=== PATIENT | female | born 1950 | race Caucasian/White ===

== ENCOUNTER → 2017-03-04 | Outpatient (CLI) | payer OTHER ==
--- NOTE | 2017-03-04 13:20 | BD ---
EXAMINATION TYPE: MG DEXA axial skeleton. DATE OF EXAM: 03/04/2017 COMPARISON: NONE CLINICAL HISTORY: Height: 63 inches Weight: 133 FRAX RISK QUESTIONS: Alcohol (3 or more units per day): no Family History (Parent hip fracture): no Glucocorticoids (More than 3mos): no (Ex: prednisone, prednisolone, methylprednisolone, dexamethasone, and hydrocortisone). History of Fracture in Adulthood: finger Secondary Osteoporosis: 1. Type 1 Diabetes: no, type II 2. Hyperthyroidism: no 3. Menopause before 45: no 4. Malnutrition: no 5. Chronic liver disease: no Rheumatoid Arthritis: no Current Tobacco Use: no RISK FACTORS HISTORY OF: Family History of Osteoporosis: no Active: no Diet low in dairy products/other sources of calcium: no Postmenopausal woman: no Take estrogen and/or progesterone medications: no Lost more than 2 inches in height since high school: no Frequent falls: no Poor Health: somewhat Hyperparathyroidism: no Adrenal Insufficiency: no MEDICATIONS: Prednisone or other steroids: no Thyroid Medications: no Osteoporosis Medications: no Additional Medications: blood pressure med, diabetes meds , multi vitamin Additional History: type II diabetic, lab band surgery-with port EXAM MEASUREMENTS: Bone mineral densitometry was performed using the [employer] System. Bone mineral density as measured about the Lumbar spine is: ----- L1-L4(G/cm2): 1.413 T Score Values are as follows: ----- L2: 1.2 ----- L3: 3.0 ----- L4: 1.8 ----- L1-L4: 1.9 Bone mineral density not previously done at this facility; previously done at a physician office Bone mineral density about the R hip (g/cm2): 0.934 Bone mineral density about the L hip (g/cm2): 0.884 T Score values are as follows: -----R Neck: -0.7 -----L Neck: -1.1 -----R Total: -0.2 -----L Total: -0.6 Bone mineral density not previously done at this facility; previously done at a physician office IMPRESSION: Normal (Values between +1 and -1 indicate normal bone mass). Consider repeating this study in 5 year s or sooner if there is some new clinical indication. NOTE: T-SCORE=SD OF THE YOUNG ADULT MEAN.
--- NOTE | 2017-03-05 11:51 | MM ---
Reason for exam: screening (asymptomatic). Last mammogram was performed 1 year and 3 months ago. History: Patient is postmenopausal and is nulliparous. Family history of breast cancer in maternal grandmother at age 70. Physical Findings: A clinical breast exam by your physician is recommended on an annual basis and results should be correlated with mammographic findings. MG Screening Mammo w CAD Bilateral CC and MLO view(s) were taken. Prior study comparison: December 16, 2015, bilateral MG screening mammo w CAD. December 14, 2014, bilateral MG screening mammo w CAD. There are scattered fibroglandular densities. There is no discrete abnormality. ASSESSMENT: Negative, BI-RAD 1 RECOMMENDATION: Routine screening mammogram of both breasts in 1 year.
== END | disposition home or self-care (01) ==
LOC: RADMAMWWP 07:52
PROVIDERS: ATTEND Obstetrics & Gynecology
DX: Z12.31 Encounter for screening mammogram for malignant neoplasm of breast (principal); Z78.0 Asymptomatic menopausal state
CPT/HCPCS: 77080; G0202

== ENCOUNTER → 2018-03-18 | Outpatient (CLI) | payer OTHER ==
--- NOTE | 2018-03-25 08:31 | MM ---
Reason for exam: screening (asymptomatic). Last mammogram was performed 1 year ago. History: Patient is postmenopausal and is nulliparous. Family history of breast cancer in maternal grandmother at age 70. MG Screening Mammo w CAD Bilateral CC and MLO view(s) were taken. Prior study comparison: March 04, 2017, bilateral MG screening mammo w CAD. December 16, 2015, bilateral MG screening mammo w CAD. There are scattered fibroglandular densities. No significant changes when compared with prior studies. ASSESSMENT: Negative, BI-RAD 1 RECOMMENDATION: Routine screening mammogram of both breasts in 1 year.
== END | disposition home or self-care (01) ==
LOC: RADMAMWWP 07:01
PROVIDERS: ATTEND Internal Medicine
DX: Z12.31 Encounter for screening mammogram for malignant neoplasm of breast (principal)
CPT/HCPCS: 77067

== ENCOUNTER → 2019-03-23 | Outpatient (CLI) | payer MEDICARE ==
--- NOTE | 2019-03-23 23:16 | MR ---
EXAMINATION TYPE: MRI left knee DATE OF EXAM: 03/23/2019 COMPARISON: None HISTORY: Intermittant pain below her Patella radiates laterally. Stiffness in the mornings in the rosa maria nt. No swelling noted. Ongoing for over a year. TECHNIQUE: Multiplanar, multisequence imaging of the left knee is performed without IV contrast. FINDINGS: There is severe narrowing of the joint spaces of the medial compartment, lateral compartmen t and patellofemoral joint. There is significant loss of articular cartilage involving all tricompart ment spaces compatible with chondromalacia. There is a 2 cm area of marrow edema or contusion involvi ng the lateral tibial plateau likely reactive. Nonspecific marrow edema involving the intercondylar n otch is seen as well as the posterior lateral femoral condyle which also is most likely reactive. Medial collateral and lateral collateral ligaments are intact. Posterior cruciate ligament is intact. There appears to be a tear of the anterior cruciate ligament which may be chronic. Patellar and quadriceps tendons are intact. There is extrusion of the medial and lateral meniscus wit h degenerative meniscal tears involving the body and posterior horn of the medial meniscus, posterior horn and most notably anterior horn of the lateral meniscus with complex tear is noted. No sizable popliteal fossa cyst. There is a small amount of fluid in the suprapatellar bursa. IMPRESSION: 1. Severe osteoarthritis involving the tricompartment space with significant changes of chondromalaci a involving the articular surface. 2. Extrusion of the medial and lateral meniscus likely degenerative with a complex tear is involving both the medial and lateral meniscus as discussed above. 3. Findings are suggestive of a chronic ACL tear correlate clinically
== END | disposition home or self-care (01) ==
LOC: RADMRIMAIN 16:07
PROVIDERS: ATTEND Orthopaedic Surgery
DX: M17.12 Unilateral primary osteoarthritis, left knee (principal)

== ENCOUNTER → 2019-03-28 | Outpatient (CLI) | payer MEDICARE ==
--- NOTE | 2019-03-28 13:38 | MM ---
Reason for exam: screening (asymptomatic). Last mammogram was performed 1 year ago. History: Patient is postmenopausal and is nulliparous. Family history of breast cancer in maternal grandmother at age 70. Physical Findings: A clinical breast exam by your physician is recommended on an annual basis and results should be correlated with mammographic findings. MG 3D Screening Mammo W/Cad Bilateral CC, MLO, and XCCL view(s) were taken. Prior study comparison: March 18, 2018, bilateral MG screening mammo w CAD. March 04, 2017, bilateral MG screening mammo w CAD. There are scattered fibroglandular densities. There are benign appearing round linear calcifications bilaterally. There is no discrete abnormality. ASSESSMENT: Benign, BI-RAD 2 RECOMMENDATION: Routine screening mammogram of both breasts in 1 year.
== END ==
LOC: RADMAMWWP 07:08
PROVIDERS: ATTEND Family Medicine
DX: Z12.31 Encounter for screening mammogram for malignant neoplasm of breast (principal)
CPT/HCPCS: 77063; 77067

== ENCOUNTER → 2019-04-18 | Outpatient (CLI) | payer MEDICARE ==
[2019-04-18 16:59] LABS: HCT 37.7 % (34.0-46.0); HGB 11.8 gm/dL (11.4-16.0); MCH 27.5 pg (25.0-35.0); MCHC 31.3 g/dL (31.0-37.0); MCV 87.8 fL (80.0-100.0); Mean Platelet Volume 7.8; Platelet Count 240 k/uL (150-450); RBC 4.29 m/uL (3.80-5.40); RDW 13.6 % (11.5-15.5); WBC 5.3 k/uL (3.8-10.6)
[2019-04-18 17:03] LABS: Potassium 4.2 mmol/L (3.5-5.1)
== END | disposition home or self-care (01) ==
LOC: LABPAT 15:49
PROVIDERS: ATTEND Orthopaedic Surgery
DX: Z01.818 Encounter for other preprocedural examination (principal); Z01.812 Encounter for preprocedural laboratory examination; M23.92 Unspecified internal derangement of left knee
CPT/HCPCS: 36415; 80051; 85027; 93005

== ENCOUNTER 2019-05-04 09:48 | Day surgery (SDC) | payer MEDICARE ==
[2019-05-02 14:56] VITALS: BMI 33.6
--- NOTE | 2019-05-03 15:13 | HP ---
HISTORY AND PHYSICAL DATE OF SURGERY: 05/04/2019 Bernice Oro is a 68-year-old patient seen with progressive left knee pain. We discussed options for treatment. She elected to proceed with arthroscopy. Consent was obtained. PAST MEDICAL HISTORY: Hypertension, hyperlipidemia, tpq-[id number] diabetes. PAST SURGICAL HISTORY: Cholecystectomy, lap band surgery, eye surgery. DAILY MEDICATIONS: Atorvastatin, glipizide, lisinopril/hydrochlorothiazide, Loratadine, metformin. ALLERGIES: None. SOCIAL HISTORY: She denies current tobacco use. PHYSICAL EVALUATION OF THE LEFT KNEE: Her range of motion is 0-130. She has a mild effusion. There is tenderness along the medial and lateral joint lines. Positive medial Pasquale's. Positive lateral Pasquale's. Ligaments are stable. Hip rotation is without pain. Distal neurovascular exam is intact. RADIOGRAPHS OF THE LEFT KNEE: Revealed moderate to severe osteoarthritic changes of left knee. MRI revealed medial and lateral meniscal tear as well as osteoarthritic changes. IMPRESSION: 1. Internal derangement, left knee with medial and lateral meniscal tears. 2. Left knee osteoarthritis. 3. Hypertension. 4. Hyperlipidemia. 5. Rmn-[id number]-[id number] diabetes. PLAN: Left knee arthroscopy with partial meniscectomy, partial synovectomy and debridement. MMODL / IJN: [id number] /
[~2019-05-04 09:48] MED LIST: DEXAMETHASONE SOD PHOSPHATE 10 MG/ML 1 ML VIAL IV ONE; LACTATED RINGERS 1,000 ML IV SCH; LIDOCAINE 1% 20 ML VIAL (10MG/ML) FOR IV START INTRADERMA PRN; MIDAZOLAM 2 MG/2 ML VIAL IV PRN; ONDANSETRON 4 MG/2 ML VIAL IVP ONE; fentaNYL (PF) 50 MCG/ML 2 ML AMP IVP PRN
[2019-05-04 10:33] LABS: Glucose,Whole Blood 119 mg/dL (75-99)
[2019-05-04] MEDS ORDERED: PROPOFOL 10 MG/ML 20 ML VIAL IV ONE (11:01)
[2019-05-04] MEDS ORDERED: LIDOCAINE 1% INJ 10MG/ML (20 ML MDV) ONE (11:01)
[2019-05-04] MEDS ORDERED: fentaNYL (PF) 50 MCG/ML 2 ML AMP ONE (11:01)
[2019-05-04] MEDS ORDERED: MIDAZOLAM 2 MG/2 ML VIAL ONE (11:01)
[2019-05-04] MEDS ORDERED: BUPIVACAINE (PF) 0.25% 30 ML VIAL SQ ONE (11:30)
[2019-05-04 11:57] VITALS: TEMP 97.9
--- NOTE | 2019-05-04 11:59 | P.OP ---
Date of Procedure: 05/04/19 Preoperative Diagnosis: Internal derangement left knee Postoperative Diagnosis: 1. Tear lateral meniscus left knee 2. 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 Reactive synovitis medial, lateral and suprapatellar compartments left knee Procedure(s) Performed: 1. Arthroscopic partial lateral meniscectomy left knee 2. Arthroscopic chondroplasty lateral femoral condyle left knee 3. Arthroscopic partial synovectomy medial, lateral and suprapatellar compartments left knee Anesthesia: JADAA, local Surgeon: Arnol Burgess Estimated Blood Loss (ml): 5 Pathology: none sent Condition: stable Disposition: PACU Indications for Procedure: 68-year-old patient seen with progressive left knee pain. After having treatment options discussed, she elected to proceed with arthroscopy. Operative Findings: see description of procedure Description of Procedure: Patient was taken to the operative suite. Patient underwent a general anesthetic by the department of anesthesia. Patient was given preoperative an tibiotics. The left lower extremity was placed in a well-padded arthroscopic leg camargo. The left leg was prepped and draped in the normal sterile orthopedic fashion. A lateral parapatellar and suprapatellar incision was made. Trochars were inserted. Arthroscopy was initiated. Suprapatellar pouch revealed diffuse thick reactive synovitis. The patellofemoral joint appeared to articulate congruently. There was grade 3/4 chondromalacia of the patellofemoral joint, no osteochondral tears were present.. The scope was guided into the medial gutter. No loose bodies or plica were identified. The scope was then guided into the medial compartment. A medial parapatellar incision was made. Trocar inserted followed by probe. There was some mild fraying posterior horn medial meniscus. There were grade 3 chondral malacia change of the medial compartment with no osteochondral tears present. There was thick reactive synovitis anteriorly. I debrided that superficial tearing of the meniscus. I performed a partial synovectomy decompressing the thick reactive synovitis. The shaver was removed. There was good decompression of the synovitis. Scope and probe were then guided into the intercondylar notch. Cruciates were identified, there was some mild fraying of the anterior cruciate ligament. I debrided that out. The residual ACL was stable.. The scope and probe were then guided into lateral compartment. There was a complex tear involving the anterior horn, mid body and posterior horn lateral meniscus. There were grade 3 chondral malacia changes of the lateral femoral condyle with some osteochondral flap tears present. There was a area of grade 4 chondromalacia lateral tibial plateau with large areas of bony exposure and some eburnation. There was thick reactive synovitis anteriorly. I performed a partial lateral meniscectomy. I performed a chondroplasty of the lateral femoral condyle getting down to stable osteochondral tissue. I performed a partial synovectomy decompressing the thick reactive synovitis anteriorly. The residual meniscus was stable. The residual osteochondral surface of the lateral femoral condyle was stable. There was good decompression of the synovitis. The scope was in guided back into the suprapatellar compartment. I introduced a motorized shaver into the suprapatellar compartment. I debrided some piecemeal fragments of meniscus I encountered. I performed a partial synovectomy decompressing the reactive synovitis. The shaver was removed. I took one more look on the entire knee, no residual debris. Instruments were now removed from the joint. The joint was infiltrated with .25% Marcaine. Steri-Strips were applied to the portal sites. Sterile dressings were applied. The patient was placed into a CHING hose. No tourniquet was utilized. The patient was awakened, transferred to a bed and taken to recovery stable satisfactory condition.
[2019-05-04] MEDS ORDERED: HYDROmorphone 0.5 MG/0.5 ML SYRINGE IVP ONE (12:01)
[2019-05-04] MEDS ORDERED: KETOROLAC 30 MG/ML 1 ML VIAL IVP ONE (12:06)
[2019-05-04 12:20] VITALS: RESP 16
[2019-05-04] MEDS ORDERED: HYDROcodone/APAP 5-325MG 1 EACH TAB PO ONE (12:39)
[2019-05-04 13:18] VITALS: BP 111/73; PULSE 73
== END 2019-05-04 13:38 | disposition home or self-care (01) ==
LOC: OR 09:48
PROVIDERS: ATTEND Orthopaedic Surgery
DX: S83.282A Other tear of lateral meniscus, current injury, left knee, initial encounter (principal); X58.XXXA Exposure to other specified factors, initial encounter; M94.262 Chondromalacia, left knee; M65.862 Other synovitis and tenosynovitis, left lower leg; I10 Essential (primary) hypertension; E78.5 Hyperlipidemia, unspecified; E11.9 Type 2 diabetes mellitus without complications; Z79.84 Long term (current) use of oral hypoglycemic drugs; Z79.899 Other long term (current) drug therapy; Z90.49 Acquired absence of other specified parts of digestive tract; Z98.84 Bariatric surgery status
CPT/HCPCS: 29881; 29876; J2250; J1100; J0690; J2405; J2001; J3010; J1885; J2704; J1170

== ENCOUNTER → 2020-05-31 | Outpatient (CLI) | payer MEDICARE ==
[~2020-05-31] MED LIST changes: -DEXAMETHASONE SOD PHOSPHATE 10 MG/ML 1 ML VIAL IV ONE; -LACTATED RINGERS 1,000 ML IV SCH; -LIDOCAINE 1% 20 ML VIAL (10MG/ML) FOR IV START INTRADERMA PRN; -MIDAZOLAM 2 MG/2 ML VIAL IV PRN; -ONDANSETRON 4 MG/2 ML VIAL IVP ONE; +REGADENOSON 0.4 MG/5 ML SYRINGE IV PRN; -fentaNYL (PF) 50 MCG/ML 2 ML AMP IVP PRN
--- NOTE | 2020-05-31 10:00 | ECHOF ---
Referral Reason:R01.1 Undiagnosed cardiac murmur R94.31 Abn EKG MEASUREMENTS -------- HEIGHT: 160.0 cm WEIGHT: 98.4 kg BP: 162/71 RVIDd: 2.9 cm (< 3.3) IVSd: 1.3 cm (0.6 - 1.1) LVIDd: 3.7 cm (3.9 - 5.3) LVPWd: 1.2 cm (0.6 - 1.1) IVSs: 1.8 cm LVIDs: 2.5 cm LVPWs: 1.4 cm LA Diam: 2.9 cm (2.7 - 3.8) LAESV Index (A-L): 26.97 ml/m Ao Diam: 3.0 cm (2.0 - 3.7) AV Cusp: 2.2 cm (1.5 - 2.6) MV EXCURSION: 19.089 mm (> 18.000) MV EF SLOPE: 57 mm/s (70 - 150) EPSS: 0.3 cm MV E Ollie: 0.84 m/s MV DecT: 319 ms MV A Ollie: 1.09 m/s MV E/A Ratio: 0.77 FINDINGS -------- Sinus rhythm. This was a technically adequate study. The left ventricular size is normal. There is mild concentric left ventricular hypertrophy. Overa ll left ventricular systolic function is normal with, an EF between 60 - 65 %. The right ventricle is normal in size. Normal LA size by volume 22+/-6 ml/m2. The right atrium is normal in size. Interatrial and interventricular septum intact. The aortic valve is trileaflet, and appears structurally normal. No aortic stenosis or regurgitation. The mitral valve is normal. The tricuspid valve appears structurally normal. Unable to estimate RVSP due to inadequate TR jet s pectral doppler profile. There is no pulmonic regurgitation present. The aortic root size is normal. Normal inferior vena cava with normal inspiratory collapse consistent with estimated right atrial pre ssure of 5 mmHg. There is no pericardial effusion. CONCLUSIONS -------- 1. The left ventricular size is normal. 2. There is mild concentric left ventricular hypertrophy. 3. Overall left ventricular systolic function is normal with, an EF between 60 - 65 %. 4. The aortic valve is trileaflet, and appears structurally normal. No aortic stenosis or regurgitati on. 5. There is no pericardial effusion. CARDING SUPERVISOR: Erika Perez RDCS
--- NOTE | 2020-05-31 12:31 | P.STRESS ---
- Stress Test Note Stress Test Results/Findings: Exam Performed: NM stress lexiscan cardiolite Exam Date: 05/31/20 Reason for Exam: ABN EKG, CARDIAC MURMUR Height: 5 ft 3 in Weight: 98.6 kg Protocol: LEXISCAN Stage: N/A Duration of Exercise: 5 MINUTES Resting Heart Rate: 74 Resting Blood Pressure: 102/52 Maximum Achieved Heart Rate: 98 Maximum Achieved Blood Pressure: 120/56 85% PMHR: 130 100% PMHR: 153 METS: N/A Technologist Comment: Stress Test Results/Findings: This is a 69-year-old female with history of hypertension, diabetes and smoking history. Being evaluated for cardiac status because of an abnormal EKG. Stress data: Baseline EKG showed sinus rhythm with occasional APCs. Blood pressure at rest is high and 2/52 with first rate of 74. Patient was given standard dose of Lexiscan. She developed mild ST-T abnormalities. The mild ST depression in inferolateral leads. After about half a millimeter. Patient did not experience any chest pain. Final impression #1. Borderline positive Lexiscan stress test #2. Report on the nuclear images to begin by the radiologist
--- NOTE | 2020-05-31 13:14 | NM ---
EXAMINATION TYPE: NM stress lexiscan cardiolite DATE OF EXAM: 05/31/2020 COMPARISON: NONE HISTORY: Abnormal EKG, R01.1 TECHNIQUE: After the intravenous administration of 10.6 mCi Tc 99m Sestamibi - Cardiolite resting SP ECT images acquired 45 minutes post injection. The patient received 0.4mg Lexiscan, 25.3 mCi Tc 99m Sestamibi - Stress images obtained [address] injection FINDINGS: Review of stress and rest SPECT images demonstrates decreased radio pharmaceutical uptake along the i nferolateral left ventricle towards the cardiac apex greater on stress images than on rest images. G ated analysis shows normal wall motion with an estimated left ventricular ejection fraction of 79 %. IMPRESSION: Pharmacologically induced left ventricular myocardial ischemia. Correlate with echocardiographic stud ies for elevated ejection fraction. Report relayed to Dr. Gabriel at the time of interpretation.
--- NOTE | 2020-06-03 10:13 | MM ---
Reason for exam: screening (asymptomatic). Last mammogram was performed 1 year and 2 months ago. History: Patient is postmenopausal and is nulliparous. Family history of breast cancer in maternal grandmother at age 70. Physical Findings: A clinical breast exam by your physician is recommended on an annual basis and results should be correlated with mammographic findings. MG Screening Mammo w CAD Bilateral CC and MLO view(s) were taken. Prior study comparison: March 28, 2019, bilateral MG 3d screening mammo w/cad. March 18, 2018, bilateral MG screening mammo w CAD. The breast tissue is almost entirely fat. There is no discrete abnormality. No significant changes when compared with prior studies. ASSESSMENT: Negative, BI-RAD 1 RECOMMENDATION: Routine screening mammogram of both breasts in 1 year.
== END | disposition home or self-care (01) ==
LOC: RADMAMWWP 07:23
PROVIDERS: ATTEND Family Medicine
DX: Z12.31 Encounter for screening mammogram for malignant neoplasm of breast (principal); I25.9 Chronic ischemic heart disease, unspecified; I51.7 Cardiomegaly; R01.1 Cardiac murmur, unspecified; R94.31 Abnormal electrocardiogram [ECG] [EKG]
CPT/HCPCS: 93017; 93306; 77067; 78452; A9500; J2785

== ENCOUNTER 2020-06-20 07:56 | Day surgery (SDC) | payer MEDICARE ==
[2020-06-19 09:03] VITALS: BMI 39.8
[~2020-06-20 07:56] MED LIST changes: +ALPRAZolam 0.25 MG TAB PO PRN; +ALPRAZolam 0.5 MG TAB PO PRN; +ASPIRIN 325 MG TAB PO ONE; +ATORVASTATIN 80 MG TAB PO ONE; +HEPARIN SODIUM,PORCINE 10,000 UNIT in SODIUM CHLORIDE 0.9% 1,000 ML IRRIGATION PRN; +HEPARIN SODIUM,PORCINE 2,500 UNIT in SODIUM CHLORIDE 0.9% 250 ML IRRIGATION PRN; +NITROGLYCERIN SL TABS 0.4 MG TAB SUBLINGUAL PRN; -REGADENOSON 0.4 MG/5 ML SYRINGE IV PRN; +SODIUM CHLORIDE 0.9% 1,000 ML in EMPTY BAG 1 BAG IV ONE
[2020-06-20] MEDS ORDERED: SODIUM CHLORIDE 0.9% 1,000 ML IV ONE (08:08)
[2020-06-20 08:25] LABS: Glucose,Whole Blood 154 mg/dL (75-99)
[2020-06-20 08:30] VITALS: RESP 16; TEMP 98.5
[2020-06-20] MEDS ORDERED: fentaNYL (PF) 50 MCG/ML 2 ML AMP IV ONE (08:58)
[2020-06-20] MEDS ORDERED: LIDOCAINE 1% INJ 10MG/ML (20 ML MDV) SQ ONE (09:23)
[2020-06-20] MEDS ORDERED: MIDAZOLAM 2 MG/2 ML VIAL IV ONE (09:23)
[2020-06-20] MEDS ORDERED: VERAPAMIL SYRINGE (5 MG/10 ML) INTRAARTER ONE (09:26)
[2020-06-20] MEDS ORDERED: IOPAMIDOL-370 125ML BTL INJ ONE (09:36)
[2020-06-20] MEDS ORDERED: RX INFO: IV CONTRAST WAS GIVEN 1 EACH MISC MISCELLANE PRN (09:50)
[2020-06-20] MEDS ORDERED: SODIUM CHLORIDE 0.9% 1,000 ML IV SCH (10:00)
--- NOTE | 2020-06-20 10:25 | CC ---
CARDIAC CATHETERIZATION REPORT Mrs. Oro is a 69-year-old female with known history of hypertension, hyperlipidemia, diabetes mellitus, who has been complaining of progressive dyspnea on exertion. She underwent myocardial perfusion imaging that was reported showing evidence of inducible ischemia. In view of that, recommendation was made regarding cardiac catheterization. The procedure as well as the risks and the complications were discussed with the patient who is in full understanding and agreement. PROCEDURE: Patient was brought to the laborer pipeline in a fasting semi-sedated state after receiving fentanyl and Benadryl and achieving moderate conscious sedated state. Using Xylocaine anesthesia and Seldinger technique, a 6-Burkinan sheath was introduced in the right radial artery. Selective right and left coronary angiography performed using 5-Burkinan 3.5 bend, right and left Santo catheter. Multiple views of the coronary artery including hemiaxial views obtained. Following that, 5-Burkinan tight pigtail catheter was introduced in the left ventricle and pressures were calculated. Following that, catheter and sheath were removed. Hemostasis was obtained with deployment of a TR band. There was no immediate complication. Patient was returned to her room in stable condition. Of note, the patient received 5000 units of intravenous heparin as well as intra-arterial verapamil. FINDINGS: FLUOROSCOPY: There is calcification involving all the coronary arteries. LEFT MAIN: This is a large-sized vessel, bifurcating into left circumflex, left anterior descending artery. Left main coronary artery has no evidence of high-grade stenosis. LEFT ANTERIOR DESCENDING ARTERY: This vessel tapers down distal third, gives rise to a large diagonal branch in the mid segment. It is calcified. The LAD in the mid segment has 10% to 20% plaque. The rest of the vessel has no high-grade stenosis. LEFT CIRCUMFLEX: This is a nondominant large size vessel, giving rise to a large obtuse marginal branch. The left circumflex as well as branches have no evidence of obstructive coronary artery disease. RIGHT CORONARY ARTERY: This is a large dominant vessel bifurcating distally PDA and posterolateral segment and branches. The right coronary artery in mid segment has 10% to 20% plaque. The rest of the vessel has no high-grade stenosis. HEMODYNAMICS: There was no gradient across the aortic valve. The left ventricular end-diastolic pressure was 14 to 16 mmHg. CONCLUSION: 1. Calcified coronary arteries. 2. 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 RECOMMENDATION: In view of finding anatomy, I recommend to continue medical therapy with aggressive coronary risk modifications that have been initiated. Those findings and recommendation were discussed with the patient and her family and are in full understanding and agreement. Duration of the sedation is 15 minutes. MMJUNIORL / MALENAN: [id number] /
--- NOTE | 2020-06-20 10:33 | LTR ---
June 20, 2020 Re: Bernice Orlinterri Dear Dr. Gabriel: I had the opportunity to perform cardiac catheterization on Mrs. Oro at [facility] on the 20 of June and a full copy of the procedure note will be forwarded to you. In brief, she was found to have mild obstructive disease involving the LAD and the right coronary artery with no evidence of high-grade stenosis and based on those findings, I recommend continue medical therapy with aggressive coronary risk modifications that have been initiated. Thank you again for allowing me the opportunity to participate in her care. Pleas feel free to call for any questions. Sincerely yours, MD CECELIA MoratayaL / MALENAN: [id number] /
[2020-06-20 14:43] VITALS: BP 131/68; PULSE 72
[2020-06-20] MEDS ORDERED: LISINOPRIL-HCTZ 20-12.5 MG 1 EACH TAB PO SCH (21:00)
[2020-06-20] MEDS ORDERED: ATORVASTATIN 40 MG TAB PO SCH (21:00)
[2020-06-21] MEDS ORDERED: glipiZIDE 10 MG TAB PO SCH (07:30)
[2020-06-21] MEDS ORDERED: ASPIRIN 81 MG PO SCH (09:00)
== END 2020-06-20 14:05 | disposition home or self-care (01) ==
LOC: CATHCVL 07:56
PROVIDERS: ATTEND Internal Medicine Interventional Cardiology
DX: I25.10 Atherosclerotic heart disease of native coronary artery without angina pectoris (principal); I25.84 Coronary atherosclerosis due to calcified coronary lesion; I10 Essential (primary) hypertension; E11.9 Type 2 diabetes mellitus without complications; E78.5 Hyperlipidemia, unspecified; Z82.49 Family history of ischemic heart disease and other diseases of the circulatory system; Z87.891 Personal history of nicotine dependence; Z79.84 Long term (current) use of oral hypoglycemic drugs; Z79.899 Other long term (current) drug therapy; Z79.82 Long term (current) use of aspirin
CPT/HCPCS: 93458; 84132; 87635; C1894 ×2; C1769 ×2; J2250; J2001; J3010; J1644; Q9967

== ENCOUNTER → 2020-11-29 | Outpatient (CLI) | payer MEDICARE ==
--- NOTE | 2020-11-30 07:30 | MR ---
EXAMINATION TYPE: MR iac wo/w con DATE OF EXAM: 11/29/2020 4:50 PM COMPARISON: NONE HISTORY: Hearing loss TECHNIQUE: Multiplanar and multispin-echo imaging of the brain was performed both before and after the administr ation of contrast. High-resolution images are obtained of the internal auditory canals performed uti lizing 10ml mL intravenous Gadavist contrast. The ventricles, basal cisterns and sulci overlying the cerebral convexities are within normal limits. There is no evidence for midline shift or mass effect. Acute intracranial hemorrhage or extra-axial collection is not evident. There are numerous punctate foci of increased signal within the deep and periventricular white matter of both cerebral hemispheres on FLAIR weighted data set. The largest lesion within the left mckinney r adiata measures 1.3 cm. The findings are nonspecific and can be seen in patients with demyelinating d isease, chronic small vessel ischemia, chronic migraine headaches vasculopathy and Lyme's disease to name a few. High-resolution imaging of the internal auditory canals fails demonstrate evidence for an enhancing a coustic schwannoma or cerebellopontine cistern angle mass. Following contrast administration, there is no evidence for pathologic enhancement or enhancing mass. The paranasal sinuses and mastoid air cells are well-aerated. IMPRESSION: 1. No evidence of acoustic schwannoma or cerebellopontine angle mass. 2. White matter changes with differential diagnostic possibilities discussed above.
== END | disposition home or self-care (01) ==
LOC: RADMRIMAIN 15:49
PROVIDERS: ATTEND Otolaryngology
DX: G93.9 Disorder of brain, unspecified (principal)
CPT/HCPCS: 70553; A9585

== ENCOUNTER → 2022-02-27 | Outpatient (CLI) | payer MEDICARE ==
--- NOTE | 2022-02-27 10:38 | BD ---
EXAMINATION TYPE: Axial Bone Density DATE OF EXAM: 02/27/2022 COMPARISON: 03-04-2017 CLINICAL HISTORY: 71 years year old Female. ICD-10 CODE: M810 AGE RELATED OSTEO Height: 62.5IN Weight: 245LB FRAX RISK QUESTIONS: Secondary Osteoporosis: RISK FACTORS HISTORY OF: Active: YES Postmenopausal woman: YES MEDICATIONS: Additional Medications: BP MED, DIABETIC MED, CHOLESTEROL MED Additional History: TYPE II DIABETIC EXAM MEASUREMENTS: Bone mineral densitometry was performed using the [employer] System. Bone mineral density as measured about the Lumbar spine is: ----- L1-L4(G/cm2): 1.516 T Score Values are as follows: ----- L1: 2.1 ----- L2: 1.5 ----- L3: 3.5 ----- L4: 3.3 ----- L1-L4: 2.8 Bone mineral density has: Increased 7.2% since study of: 03-04-2017 Bone mineral density about the R hip (g/cm2): 0.889 Bone mineral density about the L hip (g/cm2): 0.863 T Score values are as follows: -----R Neck: -1.2 -----L Neck: -1.2 -----R Total: -0.9 -----L Total: -1.1 Bone mineral density has: Decreased -8.8% since study of: 03-04-2017 FRAX%s: The graph provided illustrates a 7.9% chance for a major osteoporotic fx and a 0.8% chance fo r the hips probability for fx in 10 years time. IMPRESSION: Osteopenia (T Score between -2.5 and -1). There is slightly increased risk of fracture and the patient may be considered for treatment. Re-Screen 2-5 years. NOTE: T-SCORE=SD OF THE YOUNG ADULT MEAN.
--- NOTE | 2022-03-02 09:52 | MM ---
Reason for Exam: Screening (asymptomatic). Last mammogram was performed 1 year(s) and 9 month(s) ago. Patient History: Menarche at age 17. Patient has no children. Postmenopausal. Maternal grandmother had breast cancer, age 70. Risk Values: Darcy 5 year model risk: 1.7%. NCI Lifetime model risk: 5.4%. Prior Study Comparison: 03/18/2018 Bilateral Screening Mammogram, [facility]. 03/28/2019 Bilateral Screening Mammogram, [facility]. 05/31/2020 Bilateral Screening Mammogram, [facility]. Tissue Density: There are scattered fibroglandular densities. Findings: Analyzed By CAD. There is no suspicious group of microcalcifications or new suspicious mass in either breast. Overall Assessment: Negative, BI-RAD 1 Management: Screening Mammogram of both breasts in 1 year. A clinical breast exam by your physician is recommended on an annual basis and results should be correlated with mammographic findings. [facility] will attempt to contact patient to return for supplemental views and ultrasound if indicated. Electronically signed and approved by: Quinn Perez DO
== END | disposition home or self-care (01) ==
LOC: RADMAMWWP 09:20
PROVIDERS: ATTEND Internal Medicine Geriatric Medicine
DX: Z12.31 Encounter for screening mammogram for malignant neoplasm of breast (principal); M81.0 Age-related osteoporosis without current pathological fracture; M85.89 Other specified disorders of bone density and structure, multiple sites; E11.9 Type 2 diabetes mellitus without complications; Z78.0 Asymptomatic menopausal state; Z80.3 Family history of malignant neoplasm of breast
CPT/HCPCS: 77063; 77067; 77080

== ENCOUNTER → 2024-03-16 | Outpatient (CLI) | payer MEDICARE ==
--- NOTE | 2024-03-16 20:59 | XR ---
EXAMINATION TYPE: XR knee complete RT DATE OF EXAM: 03/16/2024 COMPARISON: NONE CLINICAL INDICATION: Female, 73 years old with history of M25.561 PAIN IN RIGHT KNEE; TECHNIQUE: 3 views FINDINGS: Extensor mechanism is intact. Trace knee joint effusion. Tricompartmental degenerative spur ring with moderate narrowing of cartilage and joint space in the medial compartment. Osteopenia. No a cute fracture, subluxation, dislocation. IMPRESSION: Tricompartmental osteoarthrosis, moderate in the medial compartment. Trace knee joint effusion probab ly reactive. No acute osseous abnormality seen. [facility], Workstation: [facility], 03/16/2024 8:57 PM
== END | disposition home or self-care (01) ==
LOC: RADXRMAIN 14:27
PROVIDERS: ATTEND Physician Assistant
DX: M17.11 Unilateral primary osteoarthritis, right knee (principal)